=== PATIENT | female | born 1990 | race Caucasian/White ===

== ENCOUNTER 2025-02-15 06:10 | Inpatient (IN) | payer BC, OTHER, SELFPAY ==
[2025-02-15] MEDS: LR 1000 IV (06:20)
[2025-02-15 06:43] VITALS: BP 111/80; BMI 25.7
[2025-02-15 07:01] LABS: Hematocrit 34.7 % (37.0-47.0); Hemoglobin 12.2 g/dL (12.0-16.0); Mean Corp Hgb Conc. 35.2 g/dL (33.0-37.0); Mean Corpuscular Hgb 31.9 pg (27.0-31.0); Mean Corpuscular Volume 90.6 fL (81.0-99.0); Mean Platelet Volume 9.7 fL (7.4-10.4); Platelet Count 239 10^3/uL (130-400); Red Blood Cell Count 3.83 10^6/uL (4.20-5.40); Red Cell Dist. Width 13.5 % (11.5-14.5); White Blood Cell Count 8.2 10^3/uL (4.8-10.8)
[2025-02-15] MEDS: ANCEF 10 IV (07:08)
[2025-02-15] MEDS: TYLENOL 1000 MG PO (07:08)
[2025-02-15] MEDS: BICITRA 30 ML PO (07:08)
[2025-02-15] MEDS: BENADRYL 25 MG IV (11:01)
[2025-02-15] MEDS: PITOCIN 30 UNITS/NSS 500 ML IV (12:08)
[2025-02-15] MEDS: TORADOL 15 MG IV ×2 (14:17→19:50)
[2025-02-15] MEDS: NON-FORMULARY ITEM 300 MG PO (20:47)
[2025-02-15] MEDS: PERCOCET 5/325 1 TABLET PO (23:44)
[2025-02-16] MEDS: TORADOL 15 MG IV ×2 (02:00→07:55)
[2025-02-16 05:44] LABS: Hematocrit 28.5 % (37.0-47.0); Hemoglobin 9.8 g/dL (12.0-16.0); Mean Corp Hgb Conc. 34.4 g/dL (33.0-37.0); Mean Corpuscular Hgb 31.7 pg (27.0-31.0); Mean Corpuscular Volume 92.2 fL (81.0-99.0); Mean Platelet Volume 9.5 fL (7.4-10.4); Platelet Count 208 10^3/uL (130-400); Red Blood Cell Count 3.09 10^6/uL (4.20-5.40); Red Cell Dist. Width 13.6 % (11.5-14.5); White Blood Cell Count 12.8 10^3/uL (4.8-10.8)
[2025-02-16] MEDS: PERCOCET 5/325 1 TABLET PO ×3 (06:06→18:47)
[2025-02-16] MEDS: PRENATAL PLUS 1 TABLET PO (07:55)
[2025-02-16] MEDS: MOTRIN 600 MG PO ×2 (14:15→20:44)
[2025-02-16] MEDS: SENOKOT-S 1 TABLET PO (18:49)
[2025-02-16] MEDS: PERCOCET 5/325 2 TABLET PO (22:43)
[2025-02-16] MEDS: NON-FORMULARY ITEM 300 MG PO (22:46)
[2025-02-16] MEDS: MYLICON 80 MG PO (22:48)
[2025-02-17] MEDS: MOTRIN 600 MG PO ×2 (03:44→10:31)
[2025-02-17] MEDS: PERCOCET 5/325 2 TABLET PO (03:47)
[2025-02-17] MEDS: PRENATAL PLUS 1 TABLET PO (08:12)
[2025-02-17] MEDS: SENOKOT-S 1 TABLET PO (08:12)
[2025-02-17] MEDS: MYLICON 80 MG PO (10:30)
[2025-02-17] MEDS: PERCOCET 5/325 1 TABLET PO (10:31)
[2025-02-17 13:40] LABS: Syphilis/T. pallidum Ab Reflex Negative (Negative)
== END 2025-02-17 13:30 | disposition home or self-care (01) | DRG 787 ==
LOC: LDRP 06:10
PROVIDERS: Obstetrics & Gynecology; ADMITTING PHYSICIAN Obstetrics & Gynecology
PROC: 10D00Z1 Extraction of Products of Conception, Low, Open Approach (ICD-10-PCS; 2025-02-15)
DX: O34.218 Maternal care for other type scar from previous cesarean delivery (principal); D62 Acute posthemorrhagic anemia; O99.354 Diseases of the nervous system complicating childbirth; N85.8 Other specified noninflammatory disorders of uterus; G40.909 Epilepsy, unspecified, not intractable, without status epilepticus; O90.81 Anemia of the puerperium; Z3A.37 37 weeks gestation of pregnancy; Z37.0 Single live birth; Z79.899 Other long term (current) drug therapy
CPT/HCPCS: 88307; 36415; 85027; 86780; 86850; 86900; 86901